=== PATIENT | female | born 1985 | race Two or more races ===

== ENCOUNTER → 2022-05-21 | Outpatient (CLI) | payer OTHER ==
[2022-05-21 09:58] LABS: Basophils # (auto) 0 10 ^3/uL (0-0.2); Basophils % (auto) 1.3 % (0.0-2.0); Eosinophils # (auto) 0 10 ^3/uL (0-0.8); Eosinophils % (auto) 0.7 % (0.0-7.0); Hematocrit 39.8 % (36.0-46.0); Hemoglobin 13.4 g/dL (12.2-16.2); Lymphocytes # (auto) 1.3 10 ^3/uL (0.4-5.4); Lymphocytes % (auto) 44.8 % (10.0-50.0); Mean Corpuscular Hemoglobin 30.9 pg (28.0-32.0); Mean Corpuscular Hgb Conc. 33.6 g/dL (32.0-36.0); Mean Corpuscular Volume 92.2 fL (80.0-100.0); Monocytes # (auto) 0.3 10 ^3/uL (0-1.3); Monocytes % (auto) 10.4 % (0.0-12.0); Neutrophils # (auto) 1.2 10 ^3/uL (1.6-8.6); Neutrophils % (auto) 42.8 % (37.0-80.0); Red Blood Cells 4.32 10^6/uL (4.0-5.20); Red Cell Distribution Width 12.9 % (11.8-14.3); White Blood Cell 2.9 10^3/uL (4.4-10.8)
[2022-05-21 11:02] LABS: Potassium 4.4 mmol/L (3.5-5.1)
[2022-05-21 11:06] LABS: Albumin 4.1 g/dL (3.4-5.0); BUN/Creatinine Ratio 14.1; Bilirubin, Total 0.6 mg/dL (0.2-1.0); Total Protein 7.2 g/dL (6.4-8.2)
[2022-05-21 11:24] LABS: Free T4 (Free Thyroxine) 1.21 ng/dL (0.89-1.76)
== END | disposition home or self-care (01) ==
LOC: LAB 09:45
PROVIDERS: ATTEND Nurse Practitioner Family
DX: R53.83 Other fatigue (principal); R68.82 Decreased libido
CPT/HCPCS: 36415; 80053; 82306; 82607; 84439; 84443; 85025

== ENCOUNTER → 2022-06-04 | Outpatient (CLI) | payer OTHER ==
[2022-06-04 11:17] LABS: Basophils # (auto) 0 10 ^3/uL (0-0.2); Basophils % (auto) 0.8 % (0.0-2.0); Eosinophils # (auto) 0 10 ^3/uL (0-0.8); Eosinophils % (auto) 0.4 % (0.0-7.0); Hematocrit 39.7 % (36.0-46.0); Hemoglobin 13.3 g/dL (12.2-16.2); Lymphocytes # (auto) 1.4 10 ^3/uL (0.4-5.4); Lymphocytes % (auto) 30.8 % (10.0-50.0); Mean Corpuscular Hemoglobin 30.6 pg (28.0-32.0); Mean Corpuscular Hgb Conc. 33.4 g/dL (32.0-36.0); Mean Corpuscular Volume 91.8 fL (80.0-100.0); Monocytes # (auto) 0.3 10 ^3/uL (0-1.3); Monocytes % (auto) 7.9 % (0.0-12.0); Neutrophils # (auto) 2.7 10 ^3/uL (1.6-8.6); Neutrophils % (auto) 60.1 % (37.0-80.0); Red Blood Cells 4.33 10^6/uL (4.0-5.20); Red Cell Distribution Width 12.7 % (11.8-14.3); White Blood Cell 4.4 10^3/uL (4.4-10.8)
== END | disposition home or self-care (01) ==
LOC: LAB 10:42
PROVIDERS: ATTEND Nurse Practitioner Family
DX: D70.9 Neutropenia, unspecified (principal)
CPT/HCPCS: 36415; 85025

== ENCOUNTER → 2024-06-09 | Outpatient (CLI) | payer OTHER ==
[2024-06-09 10:44] LABS: Basophils # (auto) 0 10 ^3/uL (0-0.2); Basophils % (auto) 0.8 % (0.0-2.0); Eosinophils # (auto) 0 10 ^3/uL (0-0.8); Eosinophils % (auto) 1.1 % (0.0-7.0); Hematocrit 37.5 % (36.0-46.0); Hemoglobin 12.6 g/dL (12.2-16.2); Lymphocytes # (auto) 1.7 10 ^3/uL (0.4-5.4); Lymphocytes % (auto) 48.6 % (10.0-50.0); Mean Corpuscular Hemoglobin 31.2 pg (28.0-32.0); Mean Corpuscular Hgb Conc. 33.6 g/dL (32.0-36.0); Mean Corpuscular Volume 92.7 fL (80.0-100.0); Monocytes # (auto) 0.3 10 ^3/uL (0-1.3); Monocytes % (auto) 9.1 % (0.0-12.0); Neutrophils # (auto) 1.4 10 ^3/uL (1.6-8.6); Neutrophils % (auto) 40.4 % (37.0-80.0); Nucleated Red Blood Cells % 0.1 %; Platelet Count (auto) 223 10^3/uL (140-450); Red Blood Cells 4.04 10^6/uL (4.0-5.20); Red Cell Distribution Width 13.2 % (11.8-14.3); White Blood Cell 3.4 10^3/uL (4.4-10.8)
[2024-06-09 11:33] LABS: Alanine Aminotransferase 11 U/L (7-40); Albumin 4.8 g/dL (3.2-4.8); Alkaline Phosphatase 51 U/L (46-116); Anion Gap 3 (5-15); Aspartate Aminotransferase 8 U/L (13-40); BUN/Creatinine Ratio 12.7 (10.0-20.0); Blood Urea Nitrogen 9 mg/dL (9-23); Carbon Dioxide 30 mmol/L (20-31); Chloride 106 mmol/L (98-107); Glucose 88 mg/dL (74-106); Potassium 3.9 mmol/L (3.5-5.1); Sodium 139 mmol/L (136-145)
[2024-06-09 11:34] LABS: Bilirubin, Total 0.5 mg/dL (0.2-1.0); Total Protein 7.1 g/dL (5.7-8.2)
[2024-06-09 11:37] LABS: Follicle Stimulating Hormone 6.24 IU/L (SEE BELOW)
[2024-06-09 11:38] LABS: Leuteinizing Hormone 4.2 IU/L
== END | disposition home or self-care (01) ==
LOC: LAB 10:14
PROVIDERS: ATTEND Nurse Practitioner Family
DX: E55.9 Vitamin D deficiency, unspecified (principal); L65.9 Nonscarring hair loss, unspecified
CPT/HCPCS: 36415; 80053; 82306; 82670; 83001; 83002; 84443; 85025

== ENCOUNTER → 2024-10-27 | Day surgery (SDC) | payer OTHER ==
--- NOTE | 2024-10-23 14:25 | DVHHP ---
ADMIT DATE: 10/27/2024 PROPOSED DATE OF SURGERY: 10/27/2024 CHIEF COMPLAINT: Abnormal uterine bleeding. HISTORY OF PRESENT ILLNESS: This is a 39-year-old female. She is 3, para 3, last menstrual period 10/22/2024. The patient endorses long history of intermenstrual bleeding. Her cycles are regular every month with normal flow. The patient has sporadic bleeding in between menstrual cycles. The bleeding is spotting to taya bleeding up to 2-3 days at a time. She denies any pelvic pain. She denies any dyspareunia. She is not currently . She does not use any hormonal contraception. Her preferred method of contraception is partner vasectomy. History is suggestive of endometrial polyp. The patient was unable to complete a saline infusion sonohysterogram. She has declined to undergo endometrial ablation for heavy menstrual bleeding. PAST MEDICAL HISTORY: Negative. PAST SURGICAL HISTORY: Breast augmentation and vaginoplasty. MEDICATIONS: None. ALLERGIES: No known drug allergies. SOCIAL HISTORY: The patient is . Denies any tobacco, alcohol or illicit drug use. FAMILY HISTORY: Noncontributory. REVIEW OF SYSTEMS: Fourteen-point review of systems is negative, as otherwise stated in the history of present illness. PHYSICAL EXAMINATION: GENERAL: The patient is alert, well developed, no acute distress. She is pleasant. NECK: Supple, with no palpable thyromegaly. HEART AND LUNGS: Sounds are normal. ABDOMEN: Soft, nontender. No masses. PELVIC: Deferred. PSYCHIATRIC: Normal. Oriented to time, place, person and situation. Appropriate mood and affect. ASSESSMENT: * Abnormal uterine bleeding. * Suspected endometrial polyp. PLAN: Multiple therapeutic options were discussed with the patient. She has elected to undergo: Pelvic exam under anesthesia, operative hysteroscopy, uterine dilation and curettage, MyoSure polypectomy. She has declined NovaSure endometrial ablation. The risks, benefits and alternatives to the procedure was discussed with the patient, including risks of pain, bleeding, infection, injury to uterus, uterine perforation, possible need for further treatment postop if persistent abnormal bleeding continues. No guarantee given or implied regarding cessation of abnormal bleeding. The patient understands that polyps may recur. The patient also understands that there may be no polyps found at the time of procedure and that the abnormal uterine bleeding may be related to other ovulatory dysfunction or other causes not yet found and may need to be treated medically. She has declined endometrial ablation at this time. She understands that the procedures being performed do not cause any infertility and that she will not be sterile because of this procedure. All questions answered. The patient verbalized understanding and desires to proceed. Terry Lieberman DO CG/MARIO TID: [id number] RECEIPT: [id number] [facility]
[2024-10-24 09:43] LABS: Urine Bacteria None Seen /hpf (None Seen)
[2024-10-24 10:00] LABS: Basophils # (auto) 0 10 ^3/uL (0-0.2); Basophils % (auto) 0.5 % (0.0-2.0); Eosinophils # (auto) 0 10 ^3/uL (0-0.8); Eosinophils % (auto) 0.5 % (0.0-7.0); Hematocrit 39.3 % (36.0-46.0); Hemoglobin 13.4 g/dL (12.2-16.2); Lymphocytes # (auto) 1.3 10 ^3/uL (0.4-5.4); Lymphocytes % (auto) 25.6 % (10.0-50.0); Mean Corpuscular Hemoglobin 31.2 pg (28.0-32.0); Mean Corpuscular Hgb Conc. 34.1 g/dL (32.0-36.0); Mean Corpuscular Volume 91.7 fL (80.0-100.0); Monocytes # (auto) 0.4 10 ^3/uL (0-1.3); Monocytes % (auto) 7.5 % (0.0-12.0); Neutrophils # (auto) 3.2 10 ^3/uL (1.6-8.6); Neutrophils % (auto) 65.9 % (37.0-80.0); Nucleated Red Blood Cells % 0.1 %; Platelet Count (auto) 221 10^3/uL (140-450); Red Blood Cells 4.29 10^6/uL (4.0-5.20); Red Cell Distribution Width 13.1 % (11.8-14.3); White Blood Cell 4.9 10^3/uL (4.4-10.8)
[2024-10-24 10:02] LABS: Chloride 104 mmol/L (98-107); Potassium 4.1 mmol/L (3.5-5.1); Sodium 139 mmol/L (136-145)
[2024-10-24 10:03] LABS: Anion Gap 8 (5-15); Carbon Dioxide 27 mmol/L (20-31)
[2024-10-24 10:04] LABS: Calcium 10.2 mg/dL (8.7-10.4)
[2024-10-24 10:08] LABS: BUN/Creatinine Ratio 15.1 (10.0-20.0); Blood Urea Nitrogen 11 mg/dL (9-23); Glucose 96 mg/dL (74-106); Urine Blood 2+ /uL (Negative); Urine Clarity Clear (Clear); Urine Color Colorless (Yellow); Urine Protein, UAD Negative (Negative); Urine Specific Gravity 1.005 (1.001-1.035); Urine Squamous Epithelial Cell FEW /hpf (<5); Urine Urobilinogen Normal (Negative); Urine WBC < 1 /HPF (0-5)
[2024-10-24 10:09] LABS: Alkaline Phosphatase 50 U/L (46-116); Total Protein 7.5 g/dL (5.7-8.2)
[2024-10-24 10:11] LABS: Bilirubin, Total 0.6 mg/dL (0.2-1.0)
[2024-10-24 10:12] LABS: Aspartate Aminotransferase 12 U/L (13-40)
[2024-10-24 10:14] LABS: INR 0.96 (0.9-1.15); Partial Thromboplastin Time 24.5 SEC (24.5-34.5); Prothrombin Time 10.2 sec (9.3-11.8)
[2024-10-24 10:28] LABS: Alanine Aminotransferase < 9 U/L (7-40)
[~2024-10-27] VITALS: Ht 162.6 cm; Wt 63.5 kg
[~2024-10-27] MED LIST: HYDROmorphone HCL 2 MG/ML VL/or syr IV PRN; HYDROmorphone HCL 2 MG/ML VL/or syr ONE; KETAMINE 50mg/ML 1ml syringe ONE; KETOROLAC TROMETH 30 MG/ML 1ML VIAL IV ONE; LIDOCAINE 1% INJ PF 5ML AMP ONE; LIDOCAINE HCL 2% TOP JELLY 5ML TOP ONE; METOCLOPRAMIDE HCL 5MG/ml INJ 2ml VIAL IV ONE; MIDAZOLAM HCL 2MG/2ML 2ml VIAL (1mg/ml) ONE; MORPHINE SULFATE 4 MG/ML SYR/VIAL IV PRN; MORPHINE SULFATE INJ 2 MG/ml SYRG IV PRN; PROPOFOL 10 MG/ML 20 ML IV ONE; SODIUM CHLORIDE LOCK 10 ML ONE; ceFAZolin 2 GM/D5W100ml 100 ML IV ONE; fentaNYL CITRATE 100 MCG/2 ML VL ONE
[2024-10-27 09:17] VITALS: TEMP 97.7; O2SAT 98
--- NOTE | 2024-10-27 09:17 | DVHPN2 ---
Visit Coding OBGYN Date of Service: Oct 27, 2024 Billing Provider: ANDRZEJ WEIR DO [employer] Common Visit Codes: PROCEDURE ONLY [employer] Procedure Codes: 18970-E&C, DIAG OR THERAPEUTIC, 37076-[id number], SURG: W/EA (Hysteroscopic polypectomy endocervix) ANDRZEJ WEIR DO Oct 27, 2024 09:17
--- NOTE | 2024-10-27 09:34 | DVHOP ---
DATE OF SURGERY: 10/27/2024 PREOPERATIVE DIAGNOSES: Abnormal uterine bleeding, polyp. POSTOPERATIVE DIAGNOSES: Abnormal uterine bleeding, polyp. SURGEON: Terry Lieberman DO GENERATION ENGINEERING TECHNOLOGIST: None. TYPE OF ANESTHESIA: General. ANESTHESIOLOGIST: Nora Barba M.D. PROCEDURE PERFORMED: Operative hysteroscopy, fractional uterine dilation and curettage, polypectomy. INDICATIONS FOR PROCEDURE: The patient is a 39-year-old female with abnormal menstrual bleeding. The patient has intermenstrual bleeding and postcoital bleeding. Exam was suggestive of endometrial polyp. The patient desired definitive treatment with polypectomy. She declined endometrial ablation. DESCRIPTION OF FINDINGS: Uterus is approximately 10 weeks' size, anteverted. Cervix is dilated. There is a 3-4 cm endocervical polyp on a stalk that was removed with forceps. No gross evidence of malignancy. On hysteroscopy, there was a proliferative type endometrium. Bilateral tubal ostia were seen satisfactorily. There were no other endometrial polyps or lesions noted. There were no submucous fibroids. TECHNICAL PROCEDURE: After informed consent was obtained, the patient was taken to the operating room where she underwent smooth induction with general anesthesia. She was placed in dorsal lithotomy position in Jaxson rustrups. The vagina and perineum were thoroughly prepped, and the patient sterilely draped in the usual fashion. A pelvic exam was then performed under anesthesia with the above noted findings. A weighted speculum was placed in the patient's vagina. The anterior lip of the cervix was grasped with a single tooth tenaculum. The cervix was open and dilated. There was a 4 cm endocervical polyp on a stalk with a smooth contour, benign-appearing. This was grasped with ring forceps and twisted. The lesion was removed entirely at the base of the stalk. The cavity was then gently sounded to 10 cm. The cervix was serially dilated using Lance dilators to accommodate a #7 mm hysteroscope. The hysteroscope was advanced with direct visualization through the endocervix into the endometrial cavity. Normal saline was used to distend the cavity. Survey of the endometrium revealed the above noted findings. Bilateral tubal ostia were satisfactorily seen. There were no other lesions noted. The endometrium appeared proliferative with no further polyps or submucous fibroids or hyperplasia noted. The hysteroscope was removed under direct visualization. Next, a sharp uterine curettage was performed and the endometrial curettings collected on a Telfa pad and submitted to pathology. All instrumentation was removed from the patient's cervix and vagina. There was minimal bleeding noted. The patient was then taken out of lithotomy position, awakened, and taken to recovery room in stable condition. INTRAOPERATIVE COMPLICATIONS: None. ESTIMATED BLOOD LOSS: Less than 15 mL. POSTOPERATIVE CONDITION: Stable. SPECIMENS: * Endometrial curettings. * Endocervical polyp. DO AMARILIS Carrillo TID: [id number] [facility]: [id number] [facility]
[2024-10-27 10:00] VITALS: BP 116/63; PULSE 68; RESP 11; O2SAT 98
== END | disposition home or self-care (01) ==
LOC: SUR 06:55
PROVIDERS: ATTEND Obstetrics & Gynecology
DX: N93.9 Abnormal uterine and vaginal bleeding, unspecified (principal); N84.1 Polyp of cervix uteri
CPT/HCPCS: 36415; 58558; 80053; 81001; 81025; 84702; 85025; 85610; 85730; 86850; 86900; 86901; 88305; J1171; J2250; J2704; J3010